=== PATIENT | male | born 1965 | race Hispanic/Latino ===

== ENCOUNTER 2017-04-14 07:50 | Day surgery (SDC) | payer OTHER ==
[2017-04-06 08:46] VITALS: BMI 33.1
[2017-04-14 09:16] VITALS: RESP 14
[2017-04-14] MEDS ORDERED: Propofol 10 mg/ml Inj (20 ML) ONE (09:51)
[2017-04-14] MEDS ORDERED: Midazolam 2 MG/2 ML VIAL ONE (09:56)
[2017-04-14] MEDS ORDERED: Sodium Chloride 0.9% 1,000 ML IV SCH (10:30)
[2017-04-14 10:46] VITALS: TEMP 98.4
[2017-04-14 13:41] VITALS: BP 133/88; PULSE 66; O2SAT 94
== END 2017-04-14 12:30 | disposition home or self-care (01) ==
LOC: ENDO 07:50
PROVIDERS: ATTEND Internal Medicine Gastroenterology
DX: K21.0 Gastro-esophageal reflux disease with esophagitis (principal); R10.13 Epigastric pain; R19.4 Change in bowel habit; K29.50 Unspecified chronic gastritis without bleeding; K64.8 Other hemorrhoids
CPT/HCPCS: 43239; 45380; 88305; 88312; 88342; J2001; J2250; J2405; J2704; J3010; J7040 ×2

== ENCOUNTER 2018-06-09 07:09 | Outpatient (CLI) | payer OTHER | END 2018-06-09 07:10 | disposition home or self-care (01) | LOC: LAB 07:09 ==